=== PATIENT | female | born 1975 | race Caucasian/White ===

== ENCOUNTER → 2016-07-31 | Outpatient (CLI) | payer MEDICAID ==
[2016-07-31 19:40] LABS: ANA w/Reflex to Titer NEGATIVE (NEGATIVE)
[2016-08-01 11:58] LABS: Gliadin AB IgA, Deaminated 6 UNITS (<20); Gliadin AB IgG, Deaminated 4 UNITS (<20)
[2016-08-02 05:07] LABS: Complement Total (CH50) 134 CAE (54-144)
== END ==
LOC: LABWHC1 14:44
PROVIDERS: ATTEND Allergy & Immunology
DX: R19.7 Diarrhea, unspecified (principal); R21 Rash and other nonspecific skin eruption
CPT/HCPCS: 36415; 82784; 83516; 84443; 85652; 86038; 86162; 86376; 86800

== ENCOUNTER → 2016-08-08 | Outpatient (CLI) | payer MEDICAID ==
--- NOTE | 2016-08-08 15:41 | US ---
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 GLAND SIZE: Right Lobe: 5.0 x 1.6 x 1.3 cm Overall Parenchyma: homogenous Left Lobe: 4.7 x 1.3 x 1.0 cm Overall Parenchyma: homogeneous Isthmus Thickness: 0.3 cm NODULES RIGHT: # of nodules measured on right: 0 LEFT: # of nodules measured on left: 1 1. 0.4 X 0.3 x 0.1 cm hypoechoic mixed nodule at the mid medial pole with well-defined margins. Th is nodule is wider than tall and shows no intranodular vascularity. Prior size: no prior US ISTHMUS: # of nodules measured in the isthmus: 0 Bilateral neck scanned, no evidence of lymphadenopathy. IMPRESSION: Subcentimeter nodule within the left lobe thyroid.
== END | disposition home or self-care (01) ==
LOC: RADUSWWP 10:48
PROVIDERS: ATTEND Allergy & Immunology
DX: E04.1 Nontoxic single thyroid nodule (principal)
CPT/HCPCS: 76536

== ENCOUNTER → 2017-01-24 | Outpatient (CLI) | payer MEDICAID ==
--- NOTE | 2017-01-24 16:59 | US ---
EXAMINATION TYPE: US thyroid st tissue head/neck DATE OF EXAM: 01/24/2017 COMPARISON: 08/08/2016 CLINICAL HISTORY: E04.1 THYROID NODULE. F/U GLAND SIZE: Right Lobe: 5.6 x 1.4 x 1.8 cm Overall Parenchyma: homogenous Left Lobe: 5.0 x 1.1 x 1.4 cm Overall Parenchyma: homogeneous Isthmus Thickness: 0.2 cm NODULES RIGHT: # of nodules measured on right: 0 LEFT: # of nodules measured on left: 1 1. 0.3 X 0.1 x 0.3 cm isoechoic solid nodule at the mid pole with well-defined margins; This nodul e is wider than tall and shows intranodular vascularity. Prior size: 0.4 x 0.1 x 0.3 cm ISTHMUS: # of nodules measured in the isthmus: 0 Bilateral neck scanned, no evidence of lymphadenopathy. Stable, small nodule on left IMPRESSION: Negative exam. Stable appearance compared to previous exam.
== END | disposition home or self-care (01) ==
LOC: RADUSWWP 16:22
PROVIDERS: ATTEND Surgery
DX: E04.1 Nontoxic single thyroid nodule (principal)
CPT/HCPCS: 76536

== ENCOUNTER → 2017-08-21 | Outpatient (CLI) | payer MEDICAID ==
--- NOTE | 2017-08-21 07:50 | US ---
EXAMINATION TYPE: US thyroid st tissue head/neck DATE OF EXAM: 08/21/2017 COMPARISON: 01/24/2017 CLINICAL HISTORY: E04.1 Thyroid Nodule. Follow up nodule. No thyroid meds. No bx. GLAND SIZE: Right Lobe: 5.1 x 1.5 x 1.6 cm Overall Parenchyma: homogenous Left Lobe: 4.8 x 1.3 x 1.5 cm Overall Parenchyma: homogeneous Isthmus Thickness: 0.2 cm NODULES RIGHT: # of nodules measured on right: 0 LEFT: # of nodules measured on left: 1 1. 0.3 X 0.3 x 0.2 cm hypoechoic solid nodule at the mid pole with well-defined margins. This nodu le is taller than wide and shows no intranodular vascularity. Prior size: 0.3 x 0.1 x 0.3 cm ISTHMUS: # of nodules measured in the isthmus: 0 Bilateral neck scanned, no evidence of lymphadenopathy. IMPRESSION: 1. Stable nonspecific thyroid nodularity left thyroid lobe.
== END | disposition home or self-care (01) ==
LOC: RADUSWWP 07:09
PROVIDERS: ATTEND Allergy & Immunology
DX: E04.1 Nontoxic single thyroid nodule (principal)
CPT/HCPCS: 76536

== ENCOUNTER → 2017-09-27 | Outpatient (CLI) | payer MEDICAID ==
[2017-09-27 10:12] LABS: T4, Free (Free Thyroxine) 0.91 ng/dL (0.78-2.19)
[2017-09-27 17:09] LABS: Thyroid Peroxidase Antibodies <28.0 U/mL (0.0-60.0)
== END | disposition home or self-care (01) ==
LOC: LABWHC1 09:11
PROVIDERS: ATTEND Internal Medicine Endocrinology, Diabetes & Metabolism
DX: E04.1 Nontoxic single thyroid nodule (principal)
CPT/HCPCS: 36415; 84439; 84443; 84480; 86376; 86800

== ENCOUNTER → 2018-04-13 | Outpatient (CLI) | payer MEDICAID ==
[2018-04-13 11:40] LABS: Basophils # (A) 0.1 k/uL (0-0.2); Basophils % (A) 1 %; Eosinophils # (A) 0.3 k/uL (0-0.7); Eosinophils % (A) 5 %; HCT 38.8 % (34.0-46.0); Lymphocytes # (A) 1.5 k/uL (1.0-4.8); Lymphocytes % (A) 30 %; MCH 30.7 pg (25.0-35.0); MCHC 33.4 g/dL (31.0-37.0); MCV 91.8 fL (80.0-100.0); Mean Platelet Volume 7.5; Monocytes # (A) 0.3 k/uL (0-1.0); Monocytes % (A) 6 %; Neutrophils # (A) 2.7 k/uL (1.3-7.7); Neutrophils % (A) 55 %; Platelet Count 184 k/uL (150-450); RBC 4.22 m/uL (3.80-5.40); RDW 12.6 % (11.5-15.5); WBC 4.8 k/uL (3.8-10.6)
[2018-04-13 17:07] LABS: Albumin 4.4 g/dL (3.80-4.90); Albumin/Globulin Ratio 2.32 (1.60-3.17); Calcium 9.3 mg/dL (8.7-10.3); Globulin 1.9 g/dL (1.6-3.3); LDL Cholesterol,Calculated 65.8 mg/dL (0.0-131.0); Potassium 4.3 mmol/L (3.5-5.5); Total Bilirubin 0.6 mg/dL (0.3-1.2); Total Protein 6.3 g/dL (6.2-8.2); VLDL Calculation 12.2 mg/dL (5.00-40.00)
[2018-04-15 14:54] LABS: Alt. alternata IgE Class CLASS 0; Alternaria alternata IgE <0.35 kU/L (<0.35); Asperg. fumagatus IgE <0.35 kU/L (<0.35); Asperg. fumagatus IgE Class CLASS 0; Bermuda Grass IgE <0.35 kU/L (<0.35); Birch(Com.Silvr) IgE <0.35 kU/L (<0.35); Birch(Com.Silvr) IgE Class CLASS 0; Cat Epith & Dander IgE <0.35 kU/L (<0.35); Cat Epith & Dander IgE Class CLASS 0; Clad herbarum IgE <0.35 kU/L (<0.35); Cockroach IgE <0.35 kU/L (<0.35); Cottonwood IgE 0.49 kU/L (<0.35); Dermato. Pteronyssinus IgE <0.35 kU/L (<0.35); Dermato. farinae IgE <0.35 kU/L (<0.35); Dermato. farinae IgE Class CLASS 0; Dog Dander IgE <0.35 kU/L (<0.35); Elm IgE <0.35 kU/L (<0.35); Maple (Box Elder) IgE <0.35 kU/L (<0.35); Maple (Box Elder) IgE Class CLASS 0; Mountain Cedar IgE <0.35 kU/L (<0.35); Mountain Cedar IgE Class CLASS 0; Mouse Urine IgE Class CLASS 0; Nettle IgE <0.35 kU/L (<0.35); Nettle IgE Class CLASS 0; Oak IgE <0.35 kU/L (<0.35); Penicillium notatum IgE Class CLASS 0; Rough Marshelder IgE <0.35 kU/L (<0.35); Rough Marshelder IgE Class CLASS 0; Timothy Grass IgE <0.35 kU/L (<0.35); White Ash IgE Class CLASS 0
== END | disposition home or self-care (01) ==
LOC: LABWHC1 10:35
PROVIDERS: ATTEND Family Medicine
DX: L50.0 Allergic urticaria (principal)
CPT/HCPCS: 36415; 80053; 80061; 82785; 84439; 84443; 84481; 85025; 86003

== ENCOUNTER → 2018-04-23 | Outpatient (CLI) | payer MEDICAID ==
--- NOTE | 2018-04-24 09:40 | P.ARTDOP ---
Arterial Doppler LOWER EXTREMITY ARTERIAL DOPPLER: DATE OF SERVICE: 04/23/2018 Reason for study: Bilateral foot numbness. Doppler waveforms: Multiphasic down into the foot but blunted at the toe level.. Pulse volume recording: []. Pressure gradients: None except at the foot level. Ankle-brachial indices: Greater than 1 bilaterally. Toe pressures: 53 on the right, 59 on the left Impression: Normal study at the foot level and above. Decreased toe pressures and waveforms suspicious for distal vasospastic phenomenon. Distal disease a much less likely source. Clinical correlation recommended.
== END | disposition home or self-care (01) ==
LOC: RADUSWWP 07:41
PROVIDERS: ATTEND Family Medicine
DX: I87.2 Venous insufficiency (chronic) (peripheral) (principal); Z88.2 Allergy status to sulfonamides
CPT/HCPCS: 93922

== ENCOUNTER → 2018-05-29 | Outpatient (CLI) | payer MEDICAID ==
--- NOTE | 2018-05-31 10:37 | MM ---
Reason for exam: screening (asymptomatic). Last mammogram was performed 2 years and 5 months ago. Physical Findings: A clinical breast exam by your physician is recommended on an annual basis and results should be correlated with mammographic findings. MG 3D Screening Mammo W/Cad Bilateral CC and MLO view(s) were taken. Prior study comparison: December 27, 2015, bilateral MG 3d screening mammo w/cad. October 12, 2011, [facility] DIGITAL LEFT BREAST MAMMOGRAM w/CAD. The breast tissue is heterogeneously dense. This may lower the sensitivity of mammography. No significant changes when compared with prior studies. ASSESSMENT: Negative, BI-RAD 1 RECOMMENDATION: Routine screening mammogram of both breasts in 1 year. Patient should continue monthly self breast exams. A negative report should not preclude additional follow up of suspicious palpable abnormalities.
== END ==
LOC: RADMAMWWP 07:53
PROVIDERS: ATTEND Obstetrics & Gynecology
DX: Z12.31 Encounter for screening mammogram for malignant neoplasm of breast (principal)
CPT/HCPCS: 77063; 77067

== ENCOUNTER → 2019-08-04 | Outpatient (CLI) | payer MEDICAID ==
--- NOTE | 2019-08-04 07:46 | US ---
EXAMINATION TYPE: US thyroid st tissue head/neck DATE OF EXAM: 08/04/2019 COMPARISON: 08/21/2017 CLINICAL HISTORY: E04.1 Nontoxic single thyroid nodule. Follow up thyroid nodule GLAND SIZE: Right Lobe: 5.3 x 1.6 x 1.4 cm Overall Parenchyma: homogenous Left Lobe: 5.0 x 1.4 x 1.0 cm Overall Parenchyma: homogeneous Isthmus Thickness: 0.3 cm NODULES RIGHT: # of nodules measured on right: 0 LEFT: # of nodules measured on left: 0 1. Prior nodule not visualized on today's exam ISTHMUS: # of nodules measured in the isthmus: 0 Bilateral neck scanned, no evidence of lymphadenopathy. IMPRESSION: The previously seen 3 mm left thyroid nodule seen on the prior exam of 08/21/2017 is not r eproduced on today's exam. Thyroid gland is homogeneous on today's exam with no suspicious nodule.
[2019-08-04 09:07] LABS: T4, Free (Free Thyroxine) 1.05 ng/dL (0.78-2.19)
[2019-08-04 17:58] LABS: Thyroid Peroxidase Antibodies <28.0 U/mL (0.0-60.0)
== END | disposition home or self-care (01) ==
LOC: RADUSWWP 07:00
PROVIDERS: ATTEND Allergy & Immunology
DX: E04.1 Nontoxic single thyroid nodule (principal); E06.3 Autoimmune thyroiditis
CPT/HCPCS: 76536; 84436; 84439; 84443; 86376; 86800

== ENCOUNTER → 2019-09-29 | Outpatient (CLI) | payer MEDICAID | END | disposition home or self-care (01) | LOC: LABWHC1 12:44 | PROVIDERS: ATTEND Pediatrics Pediatric Infectious Diseases | DX: Z11.59 Encounter for screening for other viral diseases (principal) | CPT/HCPCS: 87635; C9803 ==

== ENCOUNTER → 2019-09-30 | Outpatient (CLI) | payer MEDICAID | END | disposition home or self-care (01) | LOC: LABWHC1 12:00 | PROVIDERS: ATTEND Pediatrics Pediatric Infectious Diseases | DX: Z11.59 Encounter for screening for other viral diseases (principal) | CPT/HCPCS: 87635; C9803 ==

== ENCOUNTER → 2019-10-01 | Outpatient (CLI) | payer MEDICAID ==
--- NOTE | 2019-10-06 11:14 | MM ---
Reason for exam: screening (asymptomatic). Last mammogram was performed 1 year and 4 months ago. Physical Findings: A clinical breast exam by your physician is recommended on an annual basis and results should be correlated with mammographic findings. MG 3D Screening Mammo W/Cad Bilateral CC, MLO, and XCCL view(s) were taken. Prior study comparison: May 29, 2018, bilateral MG 3d screening mammo w/cad. December 27, 2015, bilateral MG 3d screening mammo w/cad. The breast tissue is extremely dense which could obscure a lesion on mammography. No significant changes when compared with prior studies. ASSESSMENT: Benign, BI-RAD 2 RECOMMENDATION: Routine screening mammogram of both breasts in 1 year.
== END | disposition home or self-care (01) ==
LOC: RADMAMWWP 07:00
PROVIDERS: ATTEND Obstetrics & Gynecology
DX: Z12.31 Encounter for screening mammogram for malignant neoplasm of breast (principal)
CPT/HCPCS: 77063; 77067

== ENCOUNTER → 2020-02-06 | Outpatient (CLI) | payer MEDICAID | END | disposition home or self-care (01) | LOC: LABWHC1 09:16 | PROVIDERS: ATTEND Allergy & Immunology | DX: E06.3 Autoimmune thyroiditis (principal) | CPT/HCPCS: 36415; 84436; 84439; 84443 ==

== ENCOUNTER → 2020-04-07 | Outpatient (CLI) | payer MEDICAID ==
[2020-04-07 11:28] LABS: Appearance,Urine Cloudy (Clear); Bacteria,Urine Rare /hpf; Bilirubin,Urine Negative (Negative); Blood,Urine Large (Negative); Color,Urine Light Yellow; Glucose,Urine (UA) Negative (Negative); Hyaline Casts,Urine 1 /lpf (0-2); Ketones,Urine Negative (Negative); Leukocyte Esterase,Urine Large (Negative); Nitrite,Urine Negative (Negative); PH, Urine 7.5 (5.0-8.0); Protein,Urine Negative (Negative); RBC,Urine 4 /hpf (0-5); Specific Gravity,Urine 1.007 (1.001-1.035); Squamous Epithelial Cell,Urine 17 /hpf (0-4); Urobilinogen,Urine <2.0 mg/dL (<2.0); WBC,Urine 6 /hpf (0-5)
[2020-04-07 19:40] LABS: Basophils # (A) 0.05 X 10*3/uL (0.00-0.10); Basophils % (A) 1.1 %; Eosinophils % (A) 6.5 %; HCT 37.5 % (37.2-46.3); HGB 12.3 g/dL (12.0-15.0); Lymphocytes # (A) 1.02 X 10*3/uL (0.90-5.00); MCH 30.8 pg (27.0-32.0); MCHC 32.8 g/dL (32.0-37.0); Mean Platelet Volume 11.3 fL (9.5-12.2); Monocytes # (A) 0.38 X 10*3/uL (0.20-1.00); Monocytes % (A) 8.2 %; Neutrophils # (A) 2.87 X 10*3/uL (1.80-7.70); Neutrophils % (A) 61.8 %; Platelet Count 193 X 10*3/uL (140-440); RBC 3.99 X 10*6/uL (4.10-5.20); RDW 12.3 % (11.5-14.5); WBC 4.64 X 10*3/uL (4.50-10.00)
[2020-04-07 20:02] LABS: African American GFR (CKD) 122.1 (60.0-200.0); Albumin 4.4 g/dL (3.80-4.90); Albumin/Globulin Ratio 2.59 (1.60-3.17); BUN/Creat Ratio 14.29 Ratio (12.00-20.00); Calcium 8.7 mg/dL (8.7-10.3); Globulin 1.7 g/dL (1.6-3.3); Non-African American GFR(CKD) 105.4 (60.0-200.0); Total Bilirubin 0.8 mg/dL (0.3-1.2); Total Protein 6.1 g/dL (6.2-8.2)
[2020-04-07 22:03] LABS: Erythrocyte Sedimentation Rate 10 mm/Hr (0-20)
== END | disposition home or self-care (01) ==
LOC: LABWHC1 10:12
PROVIDERS: ATTEND Allergy & Immunology
DX: L29.9 Pruritus, unspecified (principal); R21 Rash and other nonspecific skin eruption
CPT/HCPCS: 36415; 80053; 81001; 83520; 85025; 85652

== ENCOUNTER 2020-04-10 12:14 | Inpatient (IN) | payer MEDICAID ==
[2020-04-10] MEDS ORDERED: SODIUM CHLORIDE 0.9% 500 ML 500 ML IV STA (12:31)
[2020-04-10] MEDS ORDERED: ONDANSETRON 4 MG/2 ML VIAL IVP STA (12:31)
--- NOTE | 2020-04-10 12:48 | ED ---
Abdominal Pain HPI - General Source: patient Mode of arrival: ambulatory Limitations: no limitations <Patricia Palafox - Last Filed: 04/10/20 14:27> <Mark Bull - Last Filed: 04/10/20 14:33> - General Chief Complaint: Abdominal Pain Stated Complaint: abdnormal labs Time Seen by Provider: 04/10/20 12:24 - History of Present Illness Initial Comments: Patient is a 44-year-old female presenting to the emergency department with concerns of abnormal labs as well as right upper quadrant abdominal pain and nausea and vomiting. Patient states she has been having this right upper quadrant pain intermittently for the past few months. She states it does get very sharp at times, last for 1-2 hours then gets better. She describes the pain as a right upper quadrant with some radiation into the center of her abdo men and even into the left side of her abdomen. When she does get the pain she becomes very nauseous, she did have episode of vomiting yesterday. She states she went to her PCPs office who did lab work 3 days ago and she just got a call today that her liver enzymes were elevated and so they were concerned and sent her to the ER. Patient denies any abdominal surgeries in the past. She states at this time she does continue to feel nauseous, she states her pain is minimal right now. She denies any fever or chills, no chest pain or shortness of breath. She denies any dysuria, she denies . She has no other complaints at this time. Arrival to the ER, her vitals are stable. (Patricia Palafox) - Related Data Home Medications Medication Instructions Recorded Confirmed Levothyroxine Sodium [Synthroid] 25 mcg PO DAILY 04/10/20 04/10/20 Allergies Allergy/AdvReac Type Severity Reaction Status Date / Time Sulfa (Sulfonamide Allergy Rash/Hives Verified 04/10/20 13:32 Antibiotics) Review of Systems ROS Other: All systems not noted in ROS Statement are negative. <Patricia Palfaox - Last Filed: 04/10/20 14:27> ROS Other: All systems not noted in ROS Statement are negative. <Mark Bull - Last Filed: 04/10/20 14:33> ROS Statement: Those systems with pertinent positive or pertinent negative responses have been documented in the HPI. Past Medical History Past Medical History: Thyroid Disorder History of Any Multi-Drug Resistant Organisms: None Reported Past Surgical History: No Surgical Hx Reported Past Psychological History: No Psychological Hx Reported Smoking Status: Never smoker Past Alcohol Use History: Occasional Past Drug Use History: None Reported <Patricia Palafox - Last Filed: 04/10/20 14:27> General Exam Limitations: no limitations <VivienneEmiliPatricia L - Last Filed: 04/10/20 14:27> - General Exam Comments Initial Comments: GENERAL: Patient is well-developed and well-nourished. Patient is nontoxic and in no acute distress. HEAD: Atraumatic, normocephalic. EYES: Pupils equal round and reactive to light, extraocular movements intact, sclera anicteric, conjunctiva are normal. Eyelids were unremarkable. ENT: TMs normal, nares patent, oropharynx clear without exudates. Moist mucous membranes. NECK: Normal range of motion, supple without lymphadenopathy or JVD. LUNGS: Unlabored respirations. Breath sounds clear to auscultation bilaterally and equal. No wheezes rales or rhonchi. HEART: Regular rate and rhythm without murmurs, rubs or gallops. ABDOMEN: Minimal right upper quadrant pain with palpation, no other areas of pain. Soft, normoactive bowel sounds. No guarding, no rebound. No masses appreciated. : Deferred MUSCULOSKELETAL: Normal extremities with adequate strength and normal range of motion, no pitting or edema. No clubbing or cyanosis. NEUROLOGICAL: Patient is alert and oriented x 3. Motor and sensory are also intact. Cranial nerves II through XII grossly intact. Symmetrical smile. Normal speech, normal gait. PSYCH: Normal mood, normal affect. SKIN: Warm, Dry, normal turgor, no rashes or lesions noted. (Patricia Palafox) Course <Mark Bull - Last Filed: 04/10/20 14:33> Vital Signs 04/10/20 12:16 Temperature 97.9 F Pulse Rate 91 Respiratory 18 Rate Blood Pressure 170/92 O2 Sat by Pulse 99 Oximetry - Reevaluation(s) Reevaluation #1: 04/10/20 14:33 PA supervision: I did personally evaluate this case and the findings. Patient will be admitted case was discussed with Dr. Sanchez by Patricia. (Mark Bull) Medical Decision Making - Lab Data Result diagrams: 04/10/20 12:55 04/10/20 12:55 <Patricia Palafox - Last Filed: 04/10/20 14:27> - Lab Data Result diagrams: 04/10/20 12:55 04/10/20 12:55 <Mark Bull - Last Filed: 04/10/20 14:33> - Medical Decision Making Patient is a 44-year-old female here with right upper quadrant pain, nausea and vomiting with intermittent for the past couple months. Her labs were checked 3 days ago, she had elevated liver enzymes. No history of abdominal surgeries. Her vitals are stable today. (Patricia Palafox) - Lab Data Lab Results 04/10/20 04/10/20 04/10/20 Range/Units 12:41 12:42 12:55 WBC 5.3 (3.8-10.6) k/uL RBC 4.37 (3.80-5.40) m/uL Hgb 13.8 (11.4-16.0) gm/dL Hct 39.5 (34.0-46.0) % MCV 90.3 (80.0-100.0) fL MCH 31.5 (25.0-35.0) pg MCHC 34.9 (31.0-37.0) g/dL RDW 12.3 (11.5-15.5) % Plt Count 182 (150-450) k/uL MPV 7.8 Neutrophils % 73 % Lymphocytes % 13 % Monocytes % 5 % Eosinophils % 8 % Basophils % 1 % Neutrophils # 3.9 (1.3-7.7) k/uL Lymphocytes # 0.7 L (1.0-4.8) k/uL Monocytes # 0.2 (0-1.0) k/uL Eosinophils # 0.4 (0-0.7) k/uL Basophils # 0.0 (0-0.2) k/uL PT (9.0-12.0) sec INR (<1.2) APTT (22.0-30.0) sec Sodium (137-145) mmol/L Potassium (3.5-5.1) mmol/L Chloride (98-107) mmol/L Carbon Dioxide (22-30) mmol/L Anion Gap mmol/L BUN (7-17) mg/dL Creatinine (0.52-1.04) mg/dL Est GFR (CKD-EPI)AfAm (>60 ml/min/1.73 sqM) Est GFR (CKD-EPI)NonAf (>60 ml/min/1.73 sqM) Glucose (74-99) mg/dL Calcium (8.4-10.2) mg/dL Total Bilirubin (0.2-1.3) mg/dL AST (14-36) U/L ALT (4-34) U/L Alkaline Phosphatase (38-126) U/L Total Protein (6.3-8.2) g/dL Albumin (3.5-5.0) g/dL Amylase (30-110) U/L Lipase (23-300) U/L Urine Color Yellow Urine Appearance Cloudy H (Clear) Urine pH 5.5 (5.0-8.0) Ur Specific Lincoln 1.015 (1.001-1.035) Urine Protein Trace H (Negative) Urine Glucose (UA) Negative (Negative) Urine Ketones Negative (Negative) Urine Blood Large H (Negative) Urine Nitrite Negative (Negative) Urine Bilirubin Negative (Negative) Urine Urobilinogen <2.0 (<2.0) mg/dL Ur Leukocyte Esterase Moderate H (Negative) Urine RBC 20 H (0-5) /hpf Urine WBC 6 H (0-5) /hpf Ur Squamous Epith Cells 33 H (0-4) /hpf Urine Bacteria Rare H (None) /hpf Urine Mucus Rare H (None) /hpf Urine HCG, Qual Not Detected (Not Detectd) 04/10/20 04/10/20 Range/Units 12:55 12:55 WBC (3.8-10.6) k/uL RBC (3.80-5.40) m/uL Hgb (11.4-16.0) gm/dL Hct (34.0-46.0) % MCV (80.0-100.0) fL MCH (25.0-35.0) pg MCHC (31.0-37.0) g/dL RDW (11.5-15.5) % Plt Count (150-450) k/uL MPV Neutrophils % % Lymphocytes % % Monocytes % % Eosinophils % % Basophils % % Neutrophils # (1.3-7.7) k/uL Lymphocytes # (1.0-4.8) k/uL Monocytes # (0-1.0) k/uL Eosinophils # (0-0.7) k/uL Basophils # (0-0.2) k/uL PT 10.3 (9.0-12.0) sec INR 1.0 (<1.2) APTT 22.8 (22.0-30.0) sec Sodium 139 (137-145) mmol/L Potassium 3.9 (3.5-5.1) mmol/L Chloride 105 (98-107) mmol/L Carbon Dioxide 24 (22-30) mmol/L Anion Gap 10 mmol/L BUN 18 H (7-17) mg/dL Creatinine 0.62 (0.52-1.04) mg/dL Est GFR (CKD-EPI)AfAm >90 (>60 ml/min/1.73 sqM) Est GFR (CKD-EPI)NonAf >90 (>60 ml/min/1.73 sqM) Glucose 108 H (74-99) mg/dL Calcium 9.7 (8.4-10.2) mg/dL Total Bilirubin 1.0 (0.2-1.3) mg/dL AST 154 H (14-36) U/L ALT 619 H (4-34) U/L Alkaline Phosphatase 222 H (38-126) U/L Total Protein 6.8 (6.3-8.2) g/dL Albumin 4.3 (3.5-5.0) g/dL Amylase <30 L (30-110) U/L Lipase 33 (23-300) U/L Urine Color Urine Appearance (Clear) Urine pH (5.0-8.0) Ur Specific Lincoln (1.001-1.035) Urine Protein (Negative) Urine Glucose (UA) (Negative) Urine Ketones (Negative) Urine Blood (Negative) Urine Nitrite (Negative) Urine Bilirubin (Negative) Urine Urobilinogen (<2.0) mg/dL Ur Leukocyte Esterase (Negative) Urine RBC (0-5) /hpf Urine WBC (0-5) /hpf Ur Squamous Epith Cells (0-4) /hpf Urine Bacteria (None) /hpf Urine Mucus (None) /hpf Urine HCG, Qual (Not Detectd) Disposition Is patient prescribed a controlled substance at d/c from ED?: No Decision Date: 04/10/20 Decision Time: 14:27 <Patricia Palafox - Last Filed: 04/10/20 14:27> <Mark Bull - Last Filed: 04/10/20 14:33> Clinical Impression: Cholelithiasis, Transaminitis, Right upper quadrant pain, Nausea and vomiting Disposition: ADMITTED IP TO THIS [facility] Condition: Stable Referrals: Jorge Argueta MD [Primary Care Provider] - 1-2 days
[2020-04-10 13:10] LABS: Basophils % (A) 1 %; Eosinophils # (A) 0.4 k/uL (0-0.7); Eosinophils % (A) 8 %; HCT 39.5 % (34.0-46.0); HGB 13.8 gm/dL (11.4-16.0); Lymphocytes # (A) 0.7 k/uL (1.0-4.8); Lymphocytes % (A) 13 %; MCH 31.5 pg (25.0-35.0); MCHC 34.9 g/dL (31.0-37.0); MCV 90.3 fL (80.0-100.0); Mean Platelet Volume 7.8; Monocytes # (A) 0.2 k/uL (0-1.0); Monocytes % (A) 5 %; Neutrophils # (A) 3.9 k/uL (1.3-7.7); Neutrophils % (A) 73 %; Platelet Count 182 k/uL (150-450); RBC 4.37 m/uL (3.80-5.40); RDW 12.3 % (11.5-15.5); WBC 5.3 k/uL (3.8-10.6)
[2020-04-10 13:20] LABS: ALT 619 U/L (4-34); AST 154 U/L (14-36); African American GFR (CKD) >90 (>60 ml/min/1.73 sqM); Albumin 4.3 g/dL (3.5-5.0); Alkaline Phosphatase 222 U/L (38-126); Amylase <30 U/L (30-110); Anion Gap 10 mmol/L; Blood Urea Nitrogen 18 mg/dL (7-17); Calcium 9.7 mg/dL (8.4-10.2); Carbon Dioxide 24 mmol/L (22-30); Chloride 105 mmol/L (98-107); Glucose 108 mg/dL (74-99); Lipase 33 U/L (23-300); Non-African American GFR(CKD) >90 (>60 ml/min/1.73 sqM); Potassium 3.9 mmol/L (3.5-5.1); Sodium 139 mmol/L (137-145); Total Protein 6.8 g/dL (6.3-8.2)
[2020-04-10 13:27] LABS: Partial Thromboplastin Time 22.8 sec (22.0-30.0); Prothrombin Time 10.3 sec (9.0-12.0)
[2020-04-10 13:28] LABS: Appearance,Urine Cloudy (Clear); Bacteria,Urine Rare /hpf; Bilirubin,Urine Negative (Negative); Blood,Urine Large (Negative); Color,Urine Yellow; Glucose,Urine (UA) Negative (Negative); Ketones,Urine Negative (Negative); Leukocyte Esterase,Urine Moderate (Negative); Mucus,Urine Rare /hpf; Nitrite,Urine Negative (Negative); PH, Urine 5.5 (5.0-8.0); Protein,Urine Trace (Negative); RBC,Urine 20 /hpf (0-5); Specific Gravity,Urine 1.015 (1.001-1.035); Squamous Epithelial Cell,Urine 33 /hpf (0-4); Urobilinogen,Urine <2.0 mg/dL (<2.0); WBC,Urine 6 /hpf (0-5)
--- NOTE | 2020-04-10 14:06 | US ---
EXAMINATION TYPE: US gallbladder DATE OF EXAM: 04/10/2020 COMPARISON: NONE CLINICAL HISTORY: RUQ pain, n/v. Sent by pcp, elevated liver enzymes, RUQ pain and N/V EXAM MEASUREMENTS: Liver Length: 18.5 cm Gallbladder Wall: 0.3 cm CBD: 0.4 cm Right Kidney: 10.4 x 4.3 x 4.9 cm Pancreas: visualized portions wnl, tail obscured by overlying midline bowel gas Liver: enlarged Gallbladder: multiple echogenic shadowing foci within neck and fundus that appear non mobile, wall b orderline thickened, no pericholecystic fluid seen Evidence for sonographic Singh's sign: no CBD: wnl Right Kidney: wnl IMPRESSION: Cholelithiasis without sonographic evidence to suggest acute cholecystitis. Hepatomegaly with steatosis.
[2020-04-10] MEDS ORDERED: IBUPROFEN 400 MG TAB PO PRN (14:24)
[2020-04-10] MEDS ORDERED: NALOXONE 0.4 MG/ML 1 ML VIAL IV PRN (14:24)
[2020-04-10] MEDS ORDERED: MORPHINE SULFATE 4 MG/ML SYRINGE IV PRN (14:24)
[2020-04-10] MEDS ORDERED: ONDANSETRON 4 MG/2 ML VIAL IVP PRN ×2 (14:24→15:58)
[2020-04-10] MEDS: SODIUM CHLORIDE 0.9% 1,000 ML IV SCH ×2 (16:10→23:09)
[2020-04-11 00:07] LABS: Hepatitis A Antibody IgM Non-Reactive (Non-Reactive); Hepatitis B Core IgM Non-Reactive (Non-Reactive); Hepatitis B Surface Antigen Non-Reactive (Non-Reactive); Hepatitis C IgG Antibody Non-Reactive (Non-Reactive)
[2020-04-11] MEDS: LEVOTHYROXINE 25 MCG TAB PO SCH (05:45)
[2020-04-11] MEDS: SODIUM CHLORIDE 0.9% 1,000 ML IV SCH ×3 (07:02→20:29)
[2020-04-11 08:08] LABS: ALT 422 U/L (4-34); AST 99 U/L (14-36); African American GFR (CKD) >90 (>60 ml/min/1.73 sqM); Albumin 3.4 g/dL (3.5-5.0); Alkaline Phosphatase 168 U/L (38-126); Anion Gap 5 mmol/L; Blood Urea Nitrogen 11 mg/dL (7-17); Calcium 8.6 mg/dL (8.4-10.2); Carbon Dioxide 24 mmol/L (22-30); Chloride 108 mmol/L (98-107); Glucose 95 mg/dL (74-99); Non-African American GFR(CKD) >90 (>60 ml/min/1.73 sqM); Sodium 137 mmol/L (137-145); Total Bilirubin 0.8 mg/dL (0.2-1.3); Total Protein 5.8 g/dL (6.3-8.2)
[2020-04-11 08:29] LABS: Basophils % (A) 1 %; Eosinophils # (A) 0.4 k/uL (0-0.7); Eosinophils % (A) 11 %; HCT 35.4 % (34.0-46.0); Lymphocytes # (A) 0.8 k/uL (1.0-4.8); Lymphocytes % (A) 21 %; MCH 30.9 pg (25.0-35.0); MCHC 33.9 g/dL (31.0-37.0); MCV 91.3 fL (80.0-100.0); Mean Platelet Volume 8.2; Monocytes # (A) 0.2 k/uL (0-1.0); Monocytes % (A) 6 %; Neutrophils # (A) 2.2 k/uL (1.3-7.7); Neutrophils % (A) 59 %; Platelet Count 180 k/uL (150-450); RBC 3.88 m/uL (3.80-5.40); RDW 12.9 % (11.5-15.5); WBC 3.7 k/uL (3.8-10.6)
[2020-04-11] MEDS ORDERED: SODIUM CHLORIDE 0.9% 1,000 ML IV ONE (08:40)
[2020-04-11] MEDS ORDERED: MIDAZOLAM 2 MG/2 ML VIAL IV ONE (08:49)
--- NOTE | 2020-04-11 09:40 | P.GSCN ---
History of Present Illness Consult date: 04/11/20 Reason for Consult: Right upper quadrant pain History of present illness: This a 44-year-old female who was admitted through the emergency room with complaints of right upper quadrant pain. Patient was found have evidence of cholelithiasis and choledocholithiasis. Patient's liver enzymes have a downward overnight. Her pain is improved. She's had 2 similar attacks in the past. Past Medical History Past Medical History: Thyroid Disorder Additional Past Medical History / Comment(s): Sees Dr Briceno for allergies, cottonwood, dust mites. 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 Hx of thyroid nodule that resolved on its own. History of Any Multi-Drug Resistant Organisms: None Reported Past Surgical History: No Surgical Hx Reported Additional Past Surgical History / Comment(s): 5 children vaginal deliveries Additional Past Anesthesia/Blood Transfusion Reaction / Comm: never had surgery Past Psychological History: Anxiety Additional Psychological History / Comment(s): not diagnosed by physician Smoking Status: Never smoker Past Alcohol Use History: Occasional Past Drug Use History: None Reported - Past Family History Father Family Medical History: No Reported History Mother Family Medical History: AFIB, GERD/Reflux, Thyroid Disorder Additional Family Medical History / Comment(s): hiatal hernia Medications and Allergies Home Medications Medication Instructions Recorded Confirmed Type Levothyroxine Sodium [Synthroid] 25 mcg PO DAILY 04/10/20 04/10/20 History Allergies Allergy/AdvReac Type Severity Reaction Status Date / Time Sulfa (Sulfonamide Allergy Rash/Hives Verified 04/10/20 13:32 Antibiotics) Surgical - Exam Vital Signs Temp Pulse Resp BP Pulse Ox 97.9 F 91 18 170/92 99 04/10/20 12:16 04/10/20 12:16 04/10/20 12:16 04/10/20 12:16 04/10/20 12:16 - General well developed, well nourished, no distress - Eyes PERRL - ENT normal pinna - Neck no masses - Respiratory normal expansion - Cardiovascular Rhythm: regular - Abdomen Abdomen: soft, non tender Results - Labs 04/11/20 07:12 04/11/20 07:12 Abnormal Lab Results - Last 24 Hours (Table) 04/10/20 04/10/20 04/10/20 Range/Units 12:42 12:55 12:55 WBC (3.8-10.6) k/uL Lymphocytes # 0.7 L (1.0-4.8) k/uL Chloride (98-107) mmol/L BUN 18 H (7-17) mg/dL Glucose 108 H (74-99) mg/dL AST 154 H (14-36) U/L ALT 619 H (4-34) U/L Alkaline Phosphatase 222 H (38-126) U/L Total Protein (6.3-8.2) g/dL Albumin (3.5-5.0) g/dL Amylase <30 L (30-110) U/L Urine Appearance Cloudy H (Clear) Urine Protein Trace H (Negative) Urine Blood Large H (Negative) Ur Leukocyte Esterase Moderate H (Negative) Urine RBC 20 H (0-5) /hpf Urine WBC 6 H (0-5) /hpf Ur Squamous Epith Cells 33 H (0-4) /hpf Urine Bacteria Rare H (None) /hpf Urine Mucus Rare H (None) /hpf 04/11/20 04/11/20 Range/Units 07:12 07:12 WBC 3.7 L (3.8-10.6) k/uL Lymphocytes # 0.8 L (1.0-4.8) k/uL Chloride 108 H (98-107) mmol/L BUN (7-17) mg/dL Glucose (74-99) mg/dL AST 99 H (14-36) U/L ALT 422 H (4-34) U/L Alkaline Phosphatase 168 H (38-126) U/L Total Protein 5.8 L (6.3-8.2) g/dL Albumin 3.4 L (3.5-5.0) g/dL Amylase (30-110) U/L Urine Appearance (Clear) Urine Protein (Negative) Urine Blood (Negative) Ur Leukocyte Esterase (Negative) Urine RBC (0-5) /hpf Urine WBC (0-5) /hpf Ur Squamous Epith Cells (0-4) /hpf Urine Bacteria (None) /hpf Urine Mucus (None) /hpf Diabetes panel 04/10/20 04/11/20 Range/Units 12:55 07:12 Sodium 139 137 (137-145) mmol/L Potassium 3.9 4.0 (3.5-5.1) mmol/L Chloride 105 108 H (98-107) mmol/L Carbon Dioxide 24 24 (22-30) mmol/L BUN 18 H 11 (7-17) mg/dL Creatinine 0.62 0.58 (0.52-1.04) mg/dL Glucose 108 H 95 (74-99) mg/dL Calcium 9.7 8.6 (8.4-10.2) mg/dL AST 154 H 99 H (14-36) U/L ALT 619 H 422 H (4-34) U/L Alkaline Phosphatase 222 H 168 H (38-126) U/L Total Protein 6.8 5.8 L (6.3-8.2) g/dL Albumin 4.3 3.4 L (3.5-5.0) g/dL Calcium panel 04/10/20 04/11/20 Range/Units 12:55 07:12 Calcium 9.7 8.6 (8.4-10.2) mg/dL Albumin 4.3 3.4 L (3.5-5.0) g/dL Pituitary panel 04/10/20 04/11/20 Range/Units 12:55 07:12 Sodium 139 137 (137-145) mmol/L Potassium 3.9 4.0 (3.5-5.1) mmol/L Chloride 105 108 H (98-107) mmol/L Carbon Dioxide 24 24 (22-30) mmol/L BUN 18 H 11 (7-17) mg/dL Creatinine 0.62 0.58 (0.52-1.04) mg/dL Glucose 108 H 95 (74-99) mg/dL Calcium 9.7 8.6 (8.4-10.2) mg/dL Adrenal panel 04/10/20 04/11/20 Range/Units 12:55 07:12 Sodium 139 137 (137-145) mmol/L Potassium 3.9 4.0 (3.5-5.1) mmol/L Chloride 105 108 H (98-107) mmol/L Carbon Dioxide 24 24 (22-30) mmol/L BUN 18 H 11 (7-17) mg/dL Creatinine 0.62 0.58 (0.52-1.04) mg/dL Glucose 108 H 95 (74-99) mg/dL Calcium 9.7 8.6 (8.4-10.2) mg/dL Total Bilirubin 1.0 0.8 (0.2-1.3) mg/dL AST 154 H 99 H (14-36) U/L ALT 619 H 422 H (4-34) U/L Alkaline Phosphatase 222 H 168 H (38-126) U/L Total Protein 6.8 5.8 L (6.3-8.2) g/dL Albumin 4.3 3.4 L (3.5-5.0) g/dL Assessment and Plan Assessment: Cholelithiasis Cholecystitis History of choledocholithiasis. Patient's liver enzymes have trended downward. Patient will undergo laparoscopic cholecystectomy today.
[2020-04-11] MEDS ORDERED: MIDAZOLAM 2 MG/2 ML VIAL ONE (09:43)
[2020-04-11] MEDS ORDERED: SUCCINYLCHOLINE CHLORIDE 100 MG/5 ML SYR IV ONE (09:43)
[2020-04-11] MEDS ORDERED: fentaNYL (PF) 50 MCG/ML 2 ML AMP ONE (09:43)
[2020-04-11] MEDS ORDERED: KETOROLAC 15 MG/ML 1 ML VIAL ONE (09:43)
[2020-04-11] MEDS ORDERED: ROCURONIUM 10 MG/ML (5 ML VIAL) IV ONE (09:43)
[2020-04-11] MEDS ORDERED: PROPOFOL 10 MG/ML 20 ML VIAL IV ONE (09:43)
[2020-04-11] MEDS ORDERED: ONDANSETRON 4 MG/2 ML VIAL ONE (09:43)
[2020-04-11] MEDS ORDERED: SODIUM CHLORIDE 0.9% 100 ML BAG ONE (09:43)
[2020-04-11] MEDS ORDERED: ceFAZolin 1,000 MG VIAL ONE (09:43)
[2020-04-11] MEDS ORDERED: BUPIVACAINE (PF) 0.5% 30 ML VIAL SQ ONE ×2 (09:55→10:03)
--- NOTE | 2020-04-11 10:54 | P.OP ---
Date of Procedure: 04/11/20 Preoperative Diagnosis: Cholelithiasis Cholecystitis Postoperative Diagnosis: Cholelithiasis Cholecystitis Procedure(s) Performed: Laparoscopic cholecystectomy Anesthesia: SABA Surgeon: Paul Cruz Estimated Blood Loss (ml): 5 Pathology: other (Gallbladder) Condition: stable Disposition: PACU Description of Procedure: The patient was placed on the operating table. The patient received a general endotracheal tube anesthesia. The patients abdomen was prepped and draped in the usual sterile fashion. Through an infraumbilical stab incision, the fascia of the anterior abdominal wall was grasped with a pair of Kochers and then the Veress needle was placed in the peritoneal cavity. Position of the Veress needle was confirmed with positive drop test. The abdomen was then insufflated. After adequate insufflation, the 10 mm trocar was placed in the peritoneal cavity. Following this the laparoscope was placed in the peritoneal cavity. The patient was placed in the head-up, right side up position and then a 5 mm trocar was placed in the right lateral and right subcostal position under direct visualization. A 8 mm trocar was placed in the epigastric position. The gallbladder was grasped in the fundus and infundibulum. Traction on the gallbladder was placed in the lateral and the cephalad positions. The triangle of Calot was visualized.. The cystic duct was bluntly dissected until the union of the cystic duct and common bile duct wa s seen. A critical view of safety was achieved. The cystic duct was then divided and sealed with the Harmonic scissors. A PDS Endoloop was then placed throughout the cystic duct stump. The cystic artery divided and sealed with the Harmonic scissors. The gallbladder was then removed from the liver bed using Harmonic scissors. The gallbladder was then extracted through the epigastric port site. Operative field was checked for any bleeding spots and Harmonic scissors was used to coagulate the liver bed. The abdomen was irrigated. The trocars were removed. The skin was closed using interrupted 3-0 Vicryl suture. Dermabond dressing were applied. The patient tolerated the procedure well.
[2020-04-11] MEDS ORDERED: HYDROmorphone 0.5 MG/0.5 ML SYRINGE IVP ONE (10:55)
[2020-04-11] MEDS ORDERED: METOCLOPRAMIDE 5 MG/ML 2 ML VIAL IVP ONE (11:09)
[2020-04-11] MEDS: HYDROmorphone 1 MG/ML 1 ML SYRINGE IVP PRN ×3 (13:35→20:30)
[2020-04-11] MEDS: KETOROLAC 15 MG/ML 1 ML VIAL IVP PRN ×2 (16:03→23:31)
[2020-04-12 05:43] LABS: ALT 347 U/L (4-34); AST 86 U/L (14-36); African American GFR (CKD) >90 (>60 ml/min/1.73 sqM); Albumin 3.4 g/dL (3.5-5.0); Alkaline Phosphatase 154 U/L (38-126); Anion Gap 5 mmol/L; Blood Urea Nitrogen 5 mg/dL (7-17); Calcium 8.8 mg/dL (8.4-10.2); Carbon Dioxide 25 mmol/L (22-30); Chloride 106 mmol/L (98-107); Glucose 109 mg/dL (74-99); Non-African American GFR(CKD) >90 (>60 ml/min/1.73 sqM); Sodium 136 mmol/L (137-145); Total Bilirubin 0.7 mg/dL (0.2-1.3); Total Protein 5.8 g/dL (6.3-8.2)
[2020-04-12] MEDS: LEVOTHYROXINE 25 MCG TAB PO SCH (06:06)
[2020-04-12] MEDS: KETOROLAC 15 MG/ML 1 ML VIAL IVP PRN ×2 (06:09→11:41)
[2020-04-12] MEDS ORDERED: ENOXAPARIN 40 MG/0.4 ML SYRINGE SQ SCH (09:00)
[2020-04-12] MEDS ORDERED: LEVOTHYROXINE 25 MCG TAB PO SCH (09:00)
[2020-04-12] MEDS ORDERED: traMADol 50 MG TAB PO PRN (11:40)
--- NOTE | 2020-04-12 11:41 | P.PN ---
Subjective Progress Note Date: 04/12/20 CHIEF COMPLAINT: Abdominal pain HISTORY OF PRESENT ILLNESS: Patient is status post laparoscopic cholecystectomy. She reports minimal pain at incision sites. She denies any nausea or vomiting. She is tolerating regular diet. She's afebrile. LFTs are trending down. Total bilirubin remains normal. PHYSICAL EXAM: VITAL SIGNS: Reviewed. GENERAL: Well-developed in no acute distress. HEENT: No sclera icterus. Extraocular movements grossly intact. Moist buccal mucosa. Head is atraumatic, normocephalic. ABDOMEN: Soft. Nondistended. Nontender. NEUROLOGIC: Alert and oriented. Cranial nerves II through XII grossly intact. ASSESSMENT: 1. Symptomatic cholelithiasis patient is status post laparoscopic cholecystectomy 2. Acute cholecystitis 3. Choledocholithiasis PLAN: -And Ultram as needed for pain -Continue regular diet -Encourage patient to ambulate and use incentive spirometer -Patient is stable from surgical standpoint for discharge Physician Unloader note has been reviewed by physician. Signing provider agrees with the documented findings, assessment, and plan of care. Objective - Vital Signs Vital signs: Vital Signs Temp 98.4 F 04/12/20 08:10 Pulse 78 04/12/20 08:10 Resp 18 04/12/20 08:10 BP 110/68 04/12/20 08:10 Pulse Ox 99 04/12/20 08:10 Intake & Output 04/11/20 04/12/20 04/12/20 18:59 06:59 18:59 Intake Total 990 550 Output Total 1355 Balance -365 550 Weight 69.1 kg Intake: IV 750 Intake, IV Titration 550 Amount Sodium Chloride 0.9% 1, 550 000 ml @ 125 mls/hr IV . Q8H [facility] Rx#:[id number] Oral 240 Output: Urine 1350 Estimated Blood Loss 5 Other: Voiding Method Toilet Toilet # Voids 1 2 - Labs CBC & Chem 7: 04/11/20 07:12 04/12/20 05:19 Labs: Abnormal Lab Results - Last 24 Hours (Table) 04/12/20 Range/Units 05:19 Sodium 136 L (137-145) mmol/L BUN 5 L (7-17) mg/dL Creatinine 0.49 L (0.52-1.04) mg/dL Glucose 109 H (74-99) mg/dL AST 86 H (14-36) U/L ALT 347 H (4-34) U/L Alkaline Phosphatase 154 H (38-126) U/L Total Protein 5.8 L (6.3-8.2) g/dL Albumin 3.4 L (3.5-5.0) g/dL
--- NOTE | 2020-04-12 12:19 | P.HPIM ---
History of Present Illness H&P Date: 04/12/20 Chief Complaint: Abdominal pain History and physical and Discharge Summary This is a 44-year-old female with past medical history of Robe's, multiple ALLERGIES-follows with Dr. Briceno, anxiety and multiple other medical issues presented to the ER with complaints of right upper quadrant abdominal pain radiating to midepigastric and left upper quadrant, accompanied by nausea and vomiting, lasting a couple of hours, progressively getting worse for the last few months. Patient initially had presented to her PCPs office 3 days prior, labs obtained; patient was called that her LFTs were elevated and recommended she proceed to the ER. Gallbladder ultrasound reported cholelithiasis, multiple echogenic shadowing foci within neck and fundus all appeared nonmobile, wall borderline thickened with no pericholecystic fluid seen. Afebrile, normal WBC on admission. Hypertensive on admission with blood pressure 170/92, currently controlled. Coagulation profile within normal limits. UA reported rare bacteria, 6 WBCs, moderate leukocytes, negative for nitrates. Amylase less than 30, lipase 33. Hepatitis panel nonreactive. Evaluated by surgery and underwent laparoscopic cholecystectomy yesterday.T bili within normal limits on admission, currently 0.7, LFTs slowly trending down, remain elevated post surgery. Tolerating regular diet with no nausea vomiting or diarrhea. Passing flatus, no bowel movement. Pain controlled on current regimen, using mostly Toradol. Ambulating with in room, tolerating exertion well. Review of Systems ROS Statement: Those systems with pertinent positive or pertinent negative responses have been documented in the HPI. ROS Other: All systems not noted in ROS Statement are negative. Past Medical History Past Medical History: Thyroid Disorder Additional Past Medical History / Comment(s): Sees Dr Briceno for allergies, cottonwood, dust mites. 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 Hx of thyroid nodule that resolved on its own. History of Any Multi-Drug Resistant Organisms: None Reported Past Surgical History: No Surgical Hx Reported Additional Past Surgical History / Comment(s): 5 children vaginal deliveries Additional Past Anesthesia/Blood Transfusion Reaction / Comment(s): never had surgery Past Psychological History: Anxiety Additional Psychological History / Comment(s): not diagnosed by physician Smoking Status: Never smoker Past Alcohol Use History: Occasional Past Drug Use History: None Reported - Past Family History Father Family Medical History: No Reported History Mother Family Medical History: AFIB, GERD/Reflux, Thyroid Disorder Additional Family Medical History / Comment(s): hiatal hernia Medications and Allergies Home Medications Medication Instructions Recorded Confirmed Type Levothyroxine Sodium [Synthroid] 25 mcg PO DAILY 04/10/20 04/10/20 History Allergies Allergy/AdvReac Type Severity Reaction Status Date / Time Sulfa (Sulfonamide Allergy Rash/Hives Verified 04/10/20 13:32 Antibiotics) Physical Exam Vitals: Vital Signs Temp Pulse Resp BP Pulse Ox 04/12/20 08:10 98.4 F 78 18 110/68 99 04/12/20 02:00 98.1 F 78 16 120/76 100 04/11/20 19:52 98.2 F 71 16 103/64 100 04/11/20 15:25 64 16 104/66 97 04/11/20 14:25 66 16 104/69 97 04/11/20 13:25 68 16 108/66 100 04/11/20 12:55 66 16 108/62 99 04/11/20 12:25 52 L 16 99/64 99 04/11/20 12:10 64 16 110/67 98 04/11/20 11:55 62 16 117/69 100 04/11/20 11:45 54 L 16 107/53 98 04/11/20 11:40 97.6 F 73 16 112/78 98 04/11/20 11:30 56 L 16 108/57 98 04/11/20 11:15 59 L 16 107/68 98 04/11/20 11:00 59 L 16 108/67 99 04/11/20 10:45 57 L 16 109/58 99 04/11/20 10:37 97.6 F 64 16 132/68 99 Intake and Output 04/11/20 04/12/20 04/12/20 22:59 06:59 14:59 Intake Total 240 550 Output Total 750 Balance -510 550 Intake: Intake, IV Titration 550 Amount Sodium Chloride 0.9% 1, 550 000 ml @ 125 mls/hr IV . Q8H [facility] Rx#:[id number] Oral 240 Output: Urine 750 Other: Voiding Method Toilet # Voids 1 2 PHYSICAL EXAM: VITAL SIGNS: As above GENERAL: Sitting up in bed, no acute distress. No jaundice. HEENT: Conjunctivae normal. eyes normal. Oral mucosa moist NECK: No JVD. No thyroid enlargement. No LNs CARDIOVASCULAR: S1, S2 regular.. No murmur RESPIRATION: Breath sounds diminished in the bases. No rhonchi or crackles. No bronchial breathing. ABDOMEN: Soft, status post surgery, positive Bowel sounds. LEGS: No edema. no swelling PSYCHIATRY: Alert and oriented X3, mood and affect normal. NERVOUS SYSTEM: Cranial N 2-12 grossly normal. Moves all 4 limbs. No focal deficits. Strength and sensation grossly intact.. Skin: Warm and dry, no rash Lymphatic system. No LN neck axilla. Results CBC & Chem 7: 04/11/20 07:12 04/12/20 05:19 Labs: Abnormal Lab Results - Last 24 Hours (Table) 04/12/20 Range/Units 05:19 Sodium 136 L (137-145) mmol/L BUN 5 L (7-17) mg/dL Creatinine 0.49 L (0.52-1.04) mg/dL Glucose 109 H (74-99) mg/dL AST 86 H (14-36) U/L ALT 347 H (4-34) U/L Alkaline Phosphatase 154 H (38-126) U/L Total Protein 5.8 L (6.3-8.2) g/dL Albumin 3.4 L (3.5-5.0) g/dL Thrombosis Risk Factor Assmnt - Choose All That Apply Any of the Below Risk Factors Present?: Yes Each Factor Represents 1 point: Age 41-60 years, Obesity (BMI >25) Other Risk Factors: No Other congenital or acquired thrombophilia - If yes, enter type in comment: No Thrombosis Risk Factor Assessment Total Risk Factor Score: 2 Thrombosis Risk Factor Assessment Level: Low Risk Assessment and Plan Assessment: Choledocholithiasis, status post laparoscopic cholecystectomy, pathology pending. Amylase and lipase within normal limits. Elevated LFTs, persistent, postoperative Plan: Continue on current medication regime ,monitoring and symptomatic treatment. H&P being completed today as patient was in surgery yesterday at time of rounding by PCP .Aggressive pulmonary toileting with incentive spirometer ordered. Pain management as per surgery. Increase ambulation as tolerated. Close monitoring of LFTs. Patient is being cleared by surgery for discharge. Patient will be discharged home in a stable condition with guarded prognosis. Discharge Medication List Levothyroxine Sodium [Synthroid] 25 mcg PO DAILY 04/10/20 [History] Pain management as per surgery. The impression and plan of care has been dictated as directed. : I performed a history and examination of this patient, discussed the same with the dictator. I agree with the dictator's note ,documented as a scribe. Any additional findings or plans will be noted.
[2020-04-12 13:44] VITALS: BP 116/73; PULSE 82; RESP 16; TEMP 98.1
== END 2020-04-12 14:16 | disposition home or self-care (01) | DRG 419 ==
LOC: EC 12:14 → 6PED 14:32 → OBSVTOIN 04-12 12:08
PROVIDERS: ADMIT Family Medicine; ATTEND Family Medicine
PROC: 0FT44ZZ Resection of Gallbladder, Percutaneous Endoscopic Approach (ICD-10-PCS; principal; 2020-04-11 09:30)
DX: K80.66 Calculus of gallbladder and bile duct with acute and chronic cholecystitis without obstruction (principal); E06.3 Autoimmune thyroiditis; Z20.822 Contact with and (suspected) exposure to COVID-19; F41.9 Anxiety disorder, unspecified; I10 Essential (primary) hypertension; Z79.890 Hormone replacement therapy; E66.9 Obesity, unspecified; Z68.26 Body mass index [BMI] 26.0-26.9, adult; Z88.2 Allergy status to sulfonamides; Z82.49 Family history of ischemic heart disease and other diseases of the circulatory system; Z83.49 Family history of other endocrine, nutritional and metabolic diseases; Z83.79 Family history of other diseases of the digestive system
CPT/HCPCS: 36415; 76705; 80053; 80074; 81001; 81025; 82150; 83690; 85025; 85610; 85730; 87635; 88304; 96374; 99285

== ENCOUNTER → 2020-04-15 | Outpatient (CLI) | payer MEDICAID ==
[2020-04-15 11:08] LABS: HGB 13.1 gm/dL (11.4-16.0); MCH 30.4 pg (25.0-35.0); MCHC 33.5 g/dL (31.0-37.0); MCV 90.5 fL (80.0-100.0); Mean Platelet Volume 7.9; Platelet Count 226 k/uL (150-450); RDW 12.9 % (11.5-15.5); WBC 4.6 k/uL (3.8-10.6)
[2020-04-15 11:16] LABS: ALT 197 U/L (4-34); AST 43 U/L (14-36); African American GFR (CKD) >90 (>60 ml/min/1.73 sqM); Albumin/Globulin Ratio 1.5; Alkaline Phosphatase 132 U/L (38-126); Anion Gap 7 mmol/L; Blood Urea Nitrogen 13 mg/dL (7-17); Calcium 9.5 mg/dL (8.4-10.2); Carbon Dioxide 28 mmol/L (22-30); Chloride 103 mmol/L (98-107); Globulin 2.6 g/dL; Glucose 123 mg/dL (74-99); Non-African American GFR(CKD) >90 (>60 ml/min/1.73 sqM); Sodium 138 mmol/L (137-145); Total Bilirubin 0.7 mg/dL (0.2-1.3); Total Protein 6.6 g/dL (6.3-8.2)
== END | disposition home or self-care (01) ==
LOC: LABWHC1 10:32
PROVIDERS: ATTEND Nurse Practitioner
DX: R79.89 Other specified abnormal findings of blood chemistry (principal); Z90.79 Acquired absence of other genital organ(s)
CPT/HCPCS: 36415; 80053; 85027

== ENCOUNTER → 2020-04-29 | Outpatient (CLI) | payer MEDICAID ==
[2020-04-29 23:37] LABS: HCT 38.3 % (37.2-46.3); HGB 12.9 g/dL (12.0-15.0); MCH 30.9 pg (27.0-32.0); MCHC 33.7 g/dL (32.0-37.0); MCV 91.8 fL (80.0-97.0); Mean Platelet Volume 12.4 fL (9.5-12.2); Platelet Count 204 X 10*3/uL (140-440); RBC 4.17 X 10*6/uL (4.10-5.20); RDW 12.4 % (11.5-14.5); WBC 4.69 X 10*3/uL (4.50-10.00)
[2020-04-30 10:00] LABS: African American GFR (CKD) 103.2 (60.0-200.0); Albumin 4.8 g/dL (3.80-4.90); Albumin/Globulin Ratio 2.67 (1.60-3.17); BUN/Creat Ratio 16.25 Ratio (12.00-20.00); Globulin 1.8 g/dL (1.6-3.3); Potassium 4.3 mmol/L (3.5-5.5); Total Bilirubin 0.7 mg/dL (0.3-1.2); Total Protein 6.6 g/dL (6.2-8.2)
== END | disposition home or self-care (01) ==
LOC: LABWHC1 13:46
PROVIDERS: ATTEND Surgery
DX: K80.50 Calculus of bile duct without cholangitis or cholecystitis without obstruction (principal)
CPT/HCPCS: 36415; 80053; 85027

== ENCOUNTER → 2020-05-03 | Outpatient (CLI) | payer MEDICAID ==
[2020-05-03 10:39] LABS: HCT 35.7 % (37.2-46.3); HGB 12.1 g/dL (12.0-15.0); MCHC 33.9 g/dL (32.0-37.0); MCV 91.5 fL (80.0-97.0); Mean Platelet Volume 11.9 fL (9.5-12.2); Platelet Count 177 X 10*3/uL (140-440); RDW 12.4 % (11.5-14.5); WBC 5.36 X 10*3/uL (4.50-10.00)
[2020-05-03 11:28] LABS: African American GFR (CKD) 121.3 (60.0-200.0); Albumin 4.3 g/dL (3.80-4.90); Albumin/Globulin Ratio 2.53 (1.60-3.17); Anion Gap 4.8 mmol/L (4.00-12.00); BUN/Creat Ratio 18.57 Ratio (12.00-20.00); Calcium 8.9 mg/dL (8.7-10.3); Carbon Dioxide 28.2 mmol/L (21.6-31.8); Globulin 1.7 g/dL (1.6-3.3); Non-African American GFR(CKD) 104.6 (60.0-200.0); Potassium 4.2 mmol/L (3.5-5.5); Total Bilirubin 0.6 mg/dL (0.2-1.2)
== END | disposition home or self-care (01) ==
LOC: LABWHC1 07:09
PROVIDERS: ATTEND Surgery
DX: K80.50 Calculus of bile duct without cholangitis or cholecystitis without obstruction (principal)
CPT/HCPCS: 36415; 80053; 85027

== ENCOUNTER → 2020-08-27 | Outpatient (CLI) | payer MEDICAID ==
[2020-08-27 19:54] LABS: Anti-Smith Ab Interp NEGATIVE (NEGATIVE); DNA Double-Stranded NEGATIVE (NEGATIVE)
== END | disposition home or self-care (01) ==
LOC: LABWHC1 08:21
PROVIDERS: ATTEND Dermatology MOHS-Micrographic Surgery
DX: B36.0 Pityriasis versicolor (principal)
CPT/HCPCS: 36415; 86038; 86225; 86235

== ENCOUNTER → 2020-09-29 | Outpatient (CLI) | payer MEDICAID ==
[2020-09-29 17:53] LABS: Basophils # (A) 0.06 X 10*3/uL (0.00-0.10); Basophils % (A) 1.1 %; Eosinophils # (A) 0.14 X 10*3/uL (0.04-0.35); Eosinophils % (A) 2.6 %; HCT 38.5 % (37.2-46.3); HGB 12.6 g/dL (12.0-15.0); Lymphocytes # (A) 1.17 X 10*3/uL (0.90-5.00); Lymphocytes % (A) 22.1 %; MCHC 32.7 g/dL (32.0-37.0); MCV 94.8 fL (80.0-97.0); Mean Platelet Volume 11.5 fL (9.5-12.2); Monocytes # (A) 0.35 X 10*3/uL (0.20-1.00); Monocytes % (A) 6.6 %; Neutrophils # (A) 3.55 X 10*3/uL (1.80-7.70); Neutrophils % (A) 67.2 %; Platelet Count 198 X 10*3/uL (140-440); RBC 4.06 X 10*6/uL (4.10-5.20); RDW 12.1 % (11.5-14.5); WBC 5.29 X 10*3/uL (4.50-10.00)
[2020-09-29 22:49] LABS: African American GFR (CKD) 121.3 (60.0-200.0); Albumin 4.3 g/dL (3.80-4.90); Albumin/Globulin Ratio 1.95 (1.60-3.17); Anion Gap 8.4 mmol/L (4.00-12.00); BUN/Creat Ratio 17.14 Ratio (12.00-20.00); Calcium 9.1 mg/dL (8.7-10.3); Carbon Dioxide 25.6 mmol/L (21.6-31.8); Chol/HDL Ratio 2.16; Globulin 2.2 g/dL (1.6-3.3); LDL Cholesterol,Calculated 63.6 mg/dL (0.0-131.0); Non-African American GFR(CKD) 104.6 (60.0-200.0); Potassium 4.6 mmol/L (3.5-5.5); Total Bilirubin 0.8 mg/dL (0.3-1.2); Total Protein 6.5 g/dL (6.2-8.2); VLDL Calculation 16.4 mg/dL (5.00-40.00)
== END | disposition home or self-care (01) ==
LOC: LABWHC1 08:01
PROVIDERS: ATTEND Family Medicine
DX: Z00.00 Encounter for general adult medical examination without abnormal findings (principal); Z13.220 Encounter for screening for lipoid disorders; Z13.29 Encounter for screening for other suspected endocrine disorder; Z13.31 Encounter for screening for depression; Z13.820 Encounter for screening for osteoporosis; Z71.3 Dietary counseling and surveillance; Z71.82 Exercise counseling; Z12.39 Encounter for other screening for malignant neoplasm of breast
CPT/HCPCS: 36415; 80053; 80061; 84443; 85025; 86803

== ENCOUNTER → 2020-10-20 | Outpatient (CLI) | payer MEDICAID ==
--- NOTE | 2020-10-21 12:19 | MM ---
Reason for exam: screening (asymptomatic). Last mammogram was performed 1 year and 1 month ago. Physical Findings: A clinical breast exam by your physician is recommended on an annual basis and results should be correlated with mammographic findings. MG 3D Screening Mammo W/Cad Bilateral CC and MLO view(s) were taken. XCCL view(s) were taken of the left breast. Prior study comparison: October 01, 2019, bilateral MG 3d screening mammo w/cad. May 29, 2018, bilateral MG 3d screening mammo w/cad. The breast tissue is heterogeneously dense. This may lower the sensitivity of mammography. There is no discrete abnormality. No significant changes when compared with prior studies. ASSESSMENT: Negative, BI-RAD 1 RECOMMENDATION: Routine screening mammogram of both breasts in 1 year.
== END | disposition home or self-care (01) ==
LOC: RADMAMWWP 07:18
PROVIDERS: ATTEND Family Medicine
DX: Z12.31 Encounter for screening mammogram for malignant neoplasm of breast (principal)
CPT/HCPCS: 77063; 77067